=== PATIENT | male | born 1975 | race Caucasian/White ===

== ENCOUNTER 2017-07-28 14:04 | Inpatient (IN) | payer MEDICAID ==
[2017-07-28] MEDS ORDERED: SODIUM CHLORIDE 0.9% 1,000 ML IV STA ×2 (14:37→15:45)
[2017-07-28] MEDS ORDERED: ONDANSETRON 4 MG/2 ML VIAL IVP STA (14:37)
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
[2017-07-28 14:49] LABS: Basophils # (A) 0.1 k/uL (0-0.2); Basophils % (A) 0 %; Eosinophils # (A) 0.1 k/uL (0-0.7); Eosinophils % (A) 1 %; HGB 19.6 gm/dL (13.0-17.5); Lymphocytes # (A) 1.9 k/uL (1.0-4.8); Lymphocytes % (A) 12 %; MCH 29.9 pg (25.0-35.0); MCHC 33.5 g/dL (31.0-37.0); MCV 89.2 fL (80.0-100.0); Mean Platelet Volume 6.9; Monocytes # (A) 0.7 k/uL (0-1.0); Monocytes % (A) 5 %; Neutrophils # (A) 13.4 k/uL (1.3-7.7); Neutrophils % (A) 81 %; Platelet Count 384 k/uL (150-450); RBC 6.57 m/uL (4.30-5.90); RDW 14.2 % (11.5-15.5); WBC 16.5 k/uL (3.8-10.6)
[2017-07-28 14:53] LABS: HCT 58.6 % (39.0-53.0)
[2017-07-28 14:58] LABS: Prothrombin Time 11.4 sec (9.0-12.0)
[2017-07-28 14:59] LABS: INR 1.2 (<1.2)
[2017-07-28 15:08] LABS: Albumin 5.2 g/dL (3.5-5.0); Calcium 10.3 mg/dL (8.4-10.2); Potassium 4.9 mmol/L (3.5-5.1); Total Bilirubin 1.8 mg/dL (0.2-1.3); Total Protein 8.7 g/dL (6.3-8.2)
--- NOTE | 2017-07-28 15:17 | XR ---
EXAMINATION TYPE: XR abdomen acute w cxr DATE OF EXAM: 07/28/2017 COMPARISON: NONE HISTORY: Pain TECHNIQUE: Single view of the chest and 2 views of the abdomen are submitted. FINDINGS: Single view of the chest fails demonstrate evidence for acute pulmonary disease. There is no evidence for pneumoperitoneum. The bowel gas pattern is unremarkable as there is air throughout nondilated small and large bowel. No sizeable air fluid levels.No mass effects are seen. No unusual calcifications. IMPRESSION: 1. Unremarkable study.
[2017-07-28] MEDS ORDERED: cefTRIAXone IN SWFI 2,000 MG/20 ML SYRINGE IVP STA (15:28)
[2017-07-28] MEDS ORDERED: MORPHINE SULFATE 4 MG/ML SYRINGE IVP STA (15:35)
[2017-07-28] MEDS ORDERED: MORPHINE SULFATE 4 MG/ML SYRINGE IV PRN (15:46)
[2017-07-28] MEDS ORDERED: HEPARIN SODIUM,PORCINE 5,000 UNIT/ML 1 ML VIAL IV ONE (15:46)
[2017-07-28] MEDS ORDERED: NITROGLYCERIN SL TABS 0.4 MG TAB SUBLINGUAL PRN (15:46)
--- NOTE | 2017-07-28 16:56 | NM ---
EXAMINATION TYPE: NM pul vent and perfuse DATE OF EXAM: 07/28/2017 COMPARISON: NONE HISTORY: TECHNIQUE: Utilizing inhalation of 39 mCi Tc 99m DTPA aerosol and intravenous injection of 5.3 mCi o f Tc 99m MAA, ventilation and perfusion images are acquired post injection in multiple projections. FINDINGS: There is a large matching ventilation perfusion defect at the left lung base related to markedly elev ated left diaphragm. There is no mismatch. Perfusion images show no segmental type defect. IMPRESSION: There is a low probability of pulmonary embolism. Matching defect related to the elevated diaphragm.
[2017-07-28] MEDS: HEPARIN SODIUM,PORCINE/D5W PMX 25,000 UNIT in DEXTROSE/WATER 1 500ML.BAG IV SCH (17:07)
[2017-07-28] MEDS ORDERED: HYDROcodone/APAP 5-325MG 1 EACH TAB PO PRN (17:17)
[2017-07-28] MEDS: SODIUM CHLORIDE 0.9% 1,000 ML IV SCH (17:41)
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
--- NOTE | 2017-07-28 19:13 | US ---
EXAMINATION TYPE: US kidneys/renal and bladder DATE OF EXAM: 07/28/2017 COMPARISON: NONE CLINICAL HISTORY: LEONELA. Dizziness, vomiting, near syncope EXAM MEASUREMENTS: Right Kidney: 11.4 x 5.8 x 5.6 cm Left Kidney: 12.3 x 6.5 x 6.0 cm Difficult study due to patient body habitus Right Kidney: no hydro or renal masses seen Left Kidney: no hydro or renal masses seen Bladder: not fully distended Bilateral Jets seen: no IMPRESSION: No evidence of renal mass or obstruction. Bladder was empty during the exam.
[2017-07-28] MEDS ORDERED: ONDANSETRON 4 MG/2 ML VIAL IVP PRN (19:23)
[2017-07-28 20:16] LABS: Troponin I 0.042 ng/mL (0.000-0.034)
[2017-07-28] MEDS: PANTOPRAZOLE 40 MG/10 ML VIAL IVP SCH (20:32)
[2017-07-28] MEDS: FAMOTIDINE 20 MG TAB PO SCH (20:42)
[2017-07-29 00:26] LABS: Appearance,Urine Cloudy (Clear); Bilirubin,Urine Negative (Negative); Blood,Urine Small (Negative); Color,Urine Yellow; Glucose,Urine (UA) Negative (Negative); Granular Casts,Urine 10 /lpf (0); Hyaline Casts,Urine 35 /lpf (0-2); Ketones,Urine Trace (Negative); Leukocyte Esterase,Urine Negative (Negative); Mucus,Urine Rare /hpf; Nitrite,Urine Negative (Negative); Protein,Urine 1+ (Negative); RBC,Urine 3 /hpf (0-5); Specific Gravity,Urine 1.015 (1.001-1.035); Squamous Epithelial Cell,Urine 1 /hpf (0-4); WBC,Urine 8 /hpf (0-5)
[2017-07-29 01:13] LABS: Creatine Kinase MB 8.4 ng/mL (0.0-2.4); Troponin I 0.038 ng/mL (0.000-0.034)
[2017-07-29] MEDS ORDERED: HEPARIN SODIUM,PORCINE 5,000 UNIT/ML 1 ML VIAL IV PRN (01:20)
[2017-07-29] MEDS: SODIUM CHLORIDE 0.9% 1,000 ML IV SCH ×3 (03:10→23:34)
[2017-07-29 08:16] LABS: HCT 46.6 % (39.0-53.0); MCH 31.1 pg (25.0-35.0); MCHC 34.2 g/dL (31.0-37.0); MCV 90.9 fL (80.0-100.0); Mean Platelet Volume 6.8; Platelet Count 238 k/uL (150-450); RBC 5.13 m/uL (4.30-5.90); RDW 14.5 % (11.5-15.5); WBC 9.8 k/uL (3.8-10.6)
[2017-07-29 08:18] LABS: Calcium 7.3 mg/dL (8.4-10.2); Potassium 4.4 mmol/L (3.5-5.1)
[2017-07-29] MEDS: PANTOPRAZOLE 40 MG/10 ML VIAL IVP SCH (08:32)
[2017-07-29] MEDS: DEXTROAMPHETAMINE PO SCH (08:32)
[2017-07-29] MEDS: AMPHETAMINE PO SCH (08:32)
[2017-07-29] MEDS: ASPIRIN 81 MG PO SCH (08:32)
[2017-07-29] MEDS: FAMOTIDINE 20 MG TAB PO SCH (08:32)
[2017-07-29] MEDS ORDERED: ASPIRIN 325 MG TAB PO SCH (09:00)
[2017-07-29] MEDS ORDERED: LISINOPRIL 20 MG TAB PO SCH (09:00)
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
--- NOTE | 2017-07-29 12:19 | P.PN ---
Subjective 42-year-old gentleman came in with complains of nausea and dry heaving denied any sick and vomiting and had episodes of diarrhea yesterday denied any generalized body aches. Patient mainly came in because of lightheadedness vertiginous symptoms which improved now. Patient has been dizzy since last night. And nauseous and dry heaving. Denied any chest pain to me but it was noted by the ER patient patient complained of chest pain patient was complaining of abdominal pain which is mostly crampy in nature with some tenderness in the right upper quadrant. Upon evaluation patient is found to have a mildly elevated troponins without any significant EKG changes VQ scan is being obtain because of his complaints of pleuritic chest pain to ER physician. Patient doesn't have gallbladder. Patient is now around 4.2 previous creatinine was unavailable at this time. Patient is on lisinopril and naproxen and ibuprofen although doesn't take ibuprofen and naproxen together. Patient denied any fever chills. 07/30/2017 Patient abdominal pain is resolved and he is chest pain free now, no dyspnea, no dizziness, and no fever Patient still have loose bowel movements twice this morning, no nausea vomiting , no abdominal pain, patient has good appetite and is eating well No problem with urination he is still on IV fluids Objective - Vital Signs Vital signs: Vital Signs Temp 97.7 F 07/29/17 08:00 Pulse 75 07/29/17 08:00 Resp 18 07/29/17 08:00 BP 114/54 07/29/17 08:00 Pulse Ox 97 07/29/17 08:00 Intake & Output 07/28/17 07/29/17 07/29/17 18:59 06:59 18:59 Intake Total 200 966.667 240 Output Total 1100 1200 Balance 200 -133.333 -960 Weight 136.078 kg 141 kg Intake: IV 200 800 Sodium Chloride 0.9% 1, 200 800 000 ml @ 100 mls/hr IV . Q10H [facility] Rx#:[id number] Intake, IV Titration 166.667 Amount Heparin Sodium,Porcine/ 166.667 D5w Pmx 25,000 unit In Dextrose/Water 1 500ml. bag @ 7.349 UNITS/KG/HR 20 mls/hr IV .Q24H [facility] Rx #:[id number] Oral 240 Output: Urine 1100 1200 Other: Voiding Method Toilet - Exam GENERAL: The patient is alert and oriented x3, not in any acute distress. Well developed, well nourished. HEENT: Pupils are round and equally reacting to light. EOMI. No scleral icterus. No conjunctival pallor. Normocephalic, atraumatic. No pharyngeal erythema. No thyromegaly. CARDIOVASCULAR: S1 and S2 present. No murmurs, rubs, or gallops. PULMONARY: Chest is clear to auscultation, no wheezing or crackles. ABDOMEN: Soft, distended and obese without any significant rebound or rigidity significant tenderness, normoactive bowel sounds. No palpable organomegaly. MUSCULOSKELETAL: No joint swelling or deformity. EXTREMITIES: No cyanosis, clubbing, or pedal edema. NEUROLOGICAL: Gross neurological examination did not reveal any focal deficits. SKIN: No rashes. - Labs CBC & Chem 7: 07/29/17 07:40 07/29/17 07:40 Labs: Abnormal Lab Results - Last 24 Hours (Table) 07/28/17 07/28/17 07/28/17 Range/Units 14:16 14:16 14:16 WBC 16.5 H (3.8-10.6) k/uL RBC 6.57 H (4.30-5.90) m/uL Hgb 19.6 H (13.0-17.5) gm/dL Hct 58.6 H (39.0-53.0) % Neutrophils # 13.4 H (1.3-7.7) k/uL INR 1.2 H (<1.2) D-Dimer (<0.60) mg/L FEU Sodium (137-145) mmol/L Chloride 94 L (98-107) mmol/L Carbon Dioxide 17 L (22-30) mmol/L BUN 45 H (9-20) mg/dL Creatinine 4.40 H (0.66-1.25) mg/dL Calcium 10.3 H (8.4-10.2) mg/dL Total Bilirubin 1.8 H (0.2-1.3) mg/dL AST 67 H (17-59) U/L Alkaline Phosphatase 179 H (38-126) U/L Total Creatine Kinase (55-170) U/L CK-MB (CK-2) (0.0-2.4) ng/mL Troponin I (0.000-0.034) ng/mL C-Reactive Protein (<10.0) mg/L Total Protein 8.7 H (6.3-8.2) g/dL Albumin 5.2 H (3.5-5.0) g/dL Urine Protein (Negative) Urine Ketones (Negative) Urine Blood (Negative) Urine WBC (0-5) /hpf Hyaline Casts (0-2) /lpf Urine Mucus (None) /hpf 07/28/17 07/28/17 07/28/17 Range/Units 14:16 14:16 14:40 WBC (3.8-10.6) k/uL RBC (4.30-5.90) m/uL Hgb (13.0-17.5) gm/dL Hct (39.0-53.0) % Neutrophils # (1.3-7.7) k/uL INR (<1.2) D-Dimer 1.08 H (<0.60) mg/L FEU Sodium (137-145) mmol/L Chloride (98-107) mmol/L Carbon Dioxide (22-30) mmol/L BUN (9-20) mg/dL Creatinine (0.66-1.25) mg/dL Calcium (8.4-10.2) mg/dL Total Bilirubin (0.2-1.3) mg/dL AST (17-59) U/L Alkaline Phosphatase (38-126) U/L Total Creatine Kinase (55-170) U/L CK-MB (CK-2) (0.0-2.4) ng/mL Troponin I 0.074 H* (0.000-0.034) ng/mL C-Reactive Protein 46.7 H (<10.0) mg/L Total Protein (6.3-8.2) g/dL Albumin (3.5-5.0) g/dL Urine Protein (Negative) Urine Ketones (Negative) Urine Blood (Negative) Urine WBC (0-5) /hpf Hyaline Casts (0-2) /lpf Urine Mucus (None) /hpf 07/28/17 07/29/17 07/29/17 Range/Units 19:17 00:10 00:20 WBC (3.8-10.6) k/uL RBC (4.30-5.90) m/uL Hgb (13.0-17.5) gm/dL Hct (39.0-53.0) % Neutrophils # (1.3-7.7) k/uL INR (<1.2) D-Dimer (<0.60) mg/L FEU Sodium (137-145) mmol/L Chloride (98-107) mmol/L Carbon Dioxide (22-30) mmol/L BUN (9-20) mg/dL Creatinine (0.66-1.25) mg/dL Calcium (8.4-10.2) mg/dL Total Bilirubin (0.2-1.3) mg/dL AST (17-59) U/L Alkaline Phosphatase (38-126) U/L Total Creatine Kinase 779 H 928 H (55-170) U/L CK-MB (CK-2) 7.0 H* 8.4 H* (0.0-2.4) ng/mL Troponin I 0.042 H* 0.038 H* (0.000-0.034) ng/mL C-Reactive Protein (<10.0) mg/L Total Protein (6.3-8.2) g/dL Albumin (3.5-5.0) g/dL Urine Protein 1+ H (Negative) Urine Ketones Trace H (Negative) Urine Blood Small H (Negative) Urine WBC 8 H (0-5) /hpf Hyaline Casts 35 H (0-2) /lpf Urine Mucus Rare H (None) /hpf 07/29/18 Range/Units 07:40 WBC (3.8-10.6) k/uL RBC (4.30-5.90) m/uL Hgb (13.0-17.5) gm/dL Hct (39.0-53.0) % Neutrophils # (1.3-7.7) k/uL INR (<1.2) D-Dimer (<0.60) mg/L FEU Sodium 136 L (137-145) mmol/L Chloride (98-107) mmol/L Carbon Dioxide 19 L (22-30) mmol/L BUN 54 H (9-20) mg/dL Creatinine 2.99 H (0.66-1.25) mg/dL Calcium 7.3 L (8.4-10.2) mg/dL Total Bilirubin (0.2-1.3) mg/dL AST (17-59) U/L Alkaline Phosphatase (38-126) U/L Total Creatine Kinase (55-170) U/L CK-MB (CK-2) (0.0-2.4) ng/mL Troponin I (0.000-0.034) ng/mL C-Reactive Protein (<10.0) mg/L Total Protein (6.3-8.2) g/dL Albumin (3.5-5.0) g/dL Urine Protein (Negative) Urine Ketones (Negative) Urine Blood (Negative) Urine WBC (0-5) /hpf Hyaline Casts (0-2) /lpf Urine Mucus (None) /hpf Microbiology - Last 24 Hours (Table) 07/29/17 00:10 Urine Culture - Preliminary Urine,Voided Assessment and Plan Plan: -Possible gastroenteritis: Patient was started on Protonix, continue with IV fluids, abdominal series were negative, check for C. diff, stool culture, stool wbc, ova & parasite are pending -Elevated troponin secondary to acute renal failure, cardiology was consulted , echo is pending, VQ scan results shows low probability for PE, patient might benefit from stress test as per cardiology -Acute nonoliguric Renal failure: Secondary to hypertension and NSAIDs, creatinine is 4.4, 2.99, nephrology consult is appreciated and they recommended echo, continue with IV fluids and avoiding nephrotoxic medications -Leukocytosis: Resolved -Sleep apnea uses CPAP machine which will be continued -Hypertension hold off lisinopril because of hypotension and renal dysfunction - nicotine abuse: Counseling was provided DVT prophylaxis on heparin GI prophylaxis on the per contacts
--- NOTE | 2017-07-29 14:29 | ECHOF ---
Referral Reason:[facility] MEASUREMENTS -------- HEIGHT: 182.9 cm WEIGHT: 140.6 kg BP: IVSd: 1.3 cm (0.6 - 1.1) LVIDd: 4.6 cm (3.9 - 5.3) LVPWd: 1.4 cm (0.6 - 1.1) IVSs: 2.0 cm LVIDs: 2.4 cm LVPWs: 1.8 cm Ao Diam: 3.8 cm (2.0 - 3.7) AV Cusp: 1.9 cm (1.5 - 2.6) LA Diam: 2.8 cm (2.7 - 3.8) MV EXCURSION: 16.312 mm (> 18.000) MV EF SLOPE: 131 mm/s (70 - 150) EPSS: 0.9 cm MV E Martin: 0.76 m/s MV DecT: 237 ms MV A Martin: 0.70 m/s MV E/A Ratio: 1.08 RAP: 5.00 mmHg RVSP: 10.99 mmHg FINDINGS -------- Sinus rhythm. This was a technically difficult study with suboptimal views. The left ventricular size is normal. There is mild concentric left ventricular hypertrophy. Overa ll left ventricular systolic function is normal with, an EF between 55 - 60 %. The right ventricle is normal in size. The left atrium is normal in size. The right atrium is normal in size. Lumason used The aortic valve is trileaflet and appears structurally normal. Mild mitral regurgitation is present. Mild tricuspid regurgitation present. The right ventricular systolic pressure, as measured by Doppl er, is 10.99mmHg. Pulmonic valve appears structurally normal. The aortic root size is normal. The pericardium is normal. CONCLUSIONS -------- 1. Sinus rhythm. 2. This was a technically difficult study with suboptimal views. 3. The left ventricular size is normal. 4. There is mild concentric left ventricular hypertrophy. 5. Overall left ventricular systolic function is normal with, an EF between 55 - 60 %. 6. The right ventricle is normal in size. 7. The left atrium is normal in size. 8. The right atrium is normal in size. 9. Lumason used 10. The aortic valve is trileaflet and appears structurally normal. 11. Mild mitral regurgitation is present. 12. Mild tricuspid regurgitation present. 13. The right ventricular systolic pressure, as measured by Doppler, is 10.99mmHg. 14. Pulmonic valve appears structurally normal. 15. The aortic root size is normal. 16. The pericardium is normal. CERTIFIED TECHNICIAN SPECIALIST: Jany Wilder RDCS
[2017-07-29] MEDS: HEPARIN SODIUM,PORCINE/D5W PMX 25,000 UNIT in DEXTROSE/WATER 1 500ML.BAG IV SCH (16:35)
[2017-07-30 06:08] LABS: Basophils # (A) 0.1 k/uL (0-0.2); Basophils % (A) 1 %; Eosinophils # (A) 0.2 k/uL (0-0.7); Eosinophils % (A) 2 %; HCT 47.5 % (39.0-53.0); Lymphocytes # (A) 1.6 k/uL (1.0-4.8); Lymphocytes % (A) 26 %; MCH 30.5 pg (25.0-35.0); MCHC 33.7 g/dL (31.0-37.0); MCV 90.5 fL (80.0-100.0); Mean Platelet Volume 6.9; Monocytes # (A) 0.4 k/uL (0-1.0); Monocytes % (A) 7 %; Neutrophils # (A) 3.7 k/uL (1.3-7.7); Neutrophils % (A) 59 %; Platelet Count 235 k/uL (150-450); RBC 5.25 m/uL (4.30-5.90); RDW 14.3 % (11.5-15.5); WBC 6.2 k/uL (3.8-10.6)
[2017-07-30 06:17] LABS: Anion Gap 11 mmol/L; Blood Urea Nitrogen 23 mg/dL (9-20); Calcium 8.8 mg/dL (8.4-10.2); Carbon Dioxide 23 mmol/L (22-30); Chloride 108 mmol/L (98-107); Glucose 93 mg/dL (74-99); Magnesium 2.2 mg/dL (1.6-2.3); Potassium 5.4 mmol/L (3.5-5.1); Sodium 142 mmol/L (137-145)
--- NOTE | 2017-07-30 08:14 | P.PN ---
Subjective Patient is seen in follow-up for acute kidney injury. Creatinine was 4.4 on admission and is down to 0.7 today. Patient presented with generalized weakness and dizziness. He was noted be hypotensive and has been receiving IV hydration since admission. His orthostatics were negative this morning. He feels much better. No active complaints at this time. Vital signs are stable. General: The patient appeared well nourished and normally developed. HEENT: Head exam is unremarkable. Neck is without jugular venous distension. LUNGS: Lungs are clear to auscultation and percussion. Breath sounds decreased. HEART: Rate and Rhythm are regular. First and second heart sounds normal. No murmurs, rubs or gallops. ABDOMEN: Abdominal exam reveals normal bowel sounds. Non-tender and non- distended. No evidence of peritonitis. EXTREMITITES: No clubbing, cyanosis, or edema. Objective - Vital Signs Vital signs: Vital Signs Temp 97.2 F L 07/30/17 03:34 Pulse 80 07/30/17 03:34 Resp 16 07/30/17 03:34 BP 119/55 07/30/17 03:34 Pulse Ox 97 07/30/17 03:34 Intake & Output 07/29/17 07/30/17 07/30/17 18:59 06:59 18:59 Intake Total 480 1200 Output Total 1800 875 Balance -1320 325 Weight 141.1 kg Intake: IV 1200 Sodium Chloride 0.9% 1, 1200 000 ml @ 100 mls/hr IV . Q10H [facility] Rx#:[id number] Oral 480 Output: Urine 1800 875 Other: Voiding Method Toilet Urinal - Labs CBC & Chem 7: 07/30/17 05:33 07/30/17 05:33 Labs: Abnormal Lab Results - Last 24 Hours (Table) 07/29/17 07/30/17 Range/Units 07:40 05:33 Sodium 136 L (137-145) mmol/L Potassium 5.4 H (3.5-5.1) mmol/L Chloride 108 H (98-107) mmol/L Carbon Dioxide 19 L (22-30) mmol/L BUN 54 H 23 H (9-20) mg/dL Creatinine 2.99 H (0.66-1.25) mg/dL Calcium 7.3 L (8.4-10.2) mg/dL Microbiology - Last 24 Hours (Table) 07/28/17 17:00 Blood Culture - Preliminary Blood No Growth after 24 hours 07/29/17 00:10 Urine Culture - Preliminary Urine,Voided Assessment and Plan Plan: Assessment: 1. Nonoliguric acute kidney injury mostly prerenal secondary to hypotension and nonsteroidals. Creatinine was 4.4 on admission and is down to 0.7 today. No evidence of hydronephrosis on renal ultrasound. Urine eosinophils negative. 2. Hypotension secondary to intravascular volume depletion and benazepril. Likely orthostatic in nature. Improved. 3. Metabolic acidosis secondary to acute kidney injury. Improving. 4. Hypercalcemia secondary to volume contraction. Resolved with IV fluids. 5. Mild hyperkalemia secondary to heparin and possibly high potassium intake. Plan: Hep-Lock IV fluids. Continue to hold antihypertensives. Avoid nephrotoxic agents and hypotensive episodes. Encourage oral intake. Low potassium diet. Anticipate discharge soon. He will need to follow-up as an outpatient in the next 2 weeks.
[2017-07-30] MEDS: ASPIRIN 81 MG PO SCH (08:24)
[2017-07-30] MEDS: PANTOPRAZOLE 40 MG/10 ML VIAL IVP SCH (08:24)
[2017-07-30] MEDS: SODIUM CHLORIDE 0.9% 1,000 ML IV SCH (08:24)
[2017-07-30] MEDS: DEXTROAMPHETAMINE PO SCH (08:24)
[2017-07-30] MEDS: AMPHETAMINE PO SCH (08:24)
[2017-07-30 10:47] VITALS: RESP 18
[2017-07-30] MEDS ORDERED: ALPRAZolam 0.5 MG TAB PO STA (11:53)
[2017-07-30 12:19] LABS: Albumin 3.9 g/dL (3.5-5.0); Bilirubin, Delta 0.2 mg/dL (0.0-0.2); Bilirubin,Unconjugated 0.7 mg/dL (0.0-1.1); Potassium 5.9 mmol/L (3.5-5.1); Total Bilirubin 0.9 mg/dL (0.2-1.3); Total Protein 6.4 g/dL (6.3-8.2)
[2017-07-30 12:23] VITALS: BP 146/68; PULSE 69; TEMP 97.8
[2017-07-30] MEDS ORDERED: SODIUM POLYSTYRENE SULFONATE 15 GM/60 ML BOTTLE ONE (12:29)
[2017-07-30] MEDS: SODIUM POLYSTYRENE SULFONATE 15 GM/60 ML BOTTLE PO STA ×2 (12:31→12:33)
--- NOTE | 2017-07-30 13:21 | P.PN ---
Subjective Progress Note Date: 07/30/17 This is a pleasant 42-year-old gentleman with documented history of hypertension, nondiabetic, no hyperlipidemia, moderate obesity, nicotine dependence, who presented to the hospital after a one day duration of nausea and vomiting, he also states that for the past 2 days prior to admission he had been having diarrhea stools. Patient states that prior to his admission to the hospital he was feeling quite dizzy, having abdominal discomfort, and noted that his blood pressure was running on the low side. For these reasons he came to the emergency room for further evaluation. X-ray of the abdomen was performed which came back to be unremarkable. A lung perfusion scan was obtained which was low probability for PE. Ultrasound of the kidneys and bladder was performed which did not reveal evidence of renal mass or obstruction. Blood pressure this morning 114/50 with a heart rate in the 70s, temperature 97.7, he is 97% on room air. His blood pressure on admission was 96 /54. White blood cell count on admission 16.5, hemoglobin 19.6, white blood cell count this morning 9.8 with a hemoglobin of 16, platelet count 238. D- dimer 1.08. Sodium 136, potassium 4.4, BUN 54, creatinine 2.9. BUN on admission was 45 and creatinine was 4.4. CK on admission 779 and 928, MB 7.0 and 8.4, troponins 0.07, 0.04, 0.03. Cholesterol 151, LDL 83, HDL 46, triglycerides 110. At the time of my examination this morning, patient denies any nausea or vomiting, no further diarrhea stools. He does state that a couple of days prior to his admission here he was taking Motrin and Aleve at home. 07/30/2017 Patient seen and examined this morning, feeling well, denies any chest pain, no difficulty in breathing. No further vomiting or diarrhea. CBC is normal this morning, potassium 5.4, BUN 23, creatinine 0.7. Echocardiogram with Doppler study was performed which revealed a normal left ventricular systolic function. Objective - Vital Signs Vital signs: Vital Signs Temp 97.8 F 07/30/17 12:00 Pulse 69 07/30/17 12:00 Resp 18 07/30/17 12:00 BP 146/68 07/30/17 12:00 Pulse Ox 97 07/30/17 12:00 Intake & Output 07/29/17 07/30/17 07/30/17 18:59 06:59 18:59 Intake Total 480 1200 660 Output Total 1800 875 675 Balance -1320 325 -15 Weight 141.1 kg Intake: IV 1200 Sodium Chloride 0.9% 1, 1200 000 ml @ 100 mls/hr IV . Q10H [facility] Rx#:[id number] Oral 480 660 Output: Urine 1800 875 675 Other: Voiding Method Toilet Urinal - Exam PHYSICAL EXAMINATION: GENERAL: HEENT: Head is atraumatic, normocephalic. Pupils equal, round. Sclera anicteric. Conjunctiva are clear. Mucous membranes of the mouth are moist. Neck is supple. There is no elevated jugular venous pressure.] bruit is heard. HEART EXAMINATION: Heart S1, S2 normal. No murmur or gallop heard. CHEST EXAMINATION: Lungs are clear to auscultation and precussion. No chest wall tenderness is noted on palpation or with deep breathing. ABDOMEN: Soft, nontender. Bowel sounds are heard. No organomegaly noted. EXTREMITIES: 2+ peripheral pulses with no evidence of peripheral edema and no calf tenderness noted. NEUROLOGIC patient is awake, alert and oriented -3. . - Labs CBC & Chem 7: 07/30/17 05:33 07/30/17 11:52 Labs: Abnormal Lab Results - Last 24 Hours (Table) 07/30/17 07/30/17 Range/Units 05:33 11:52 Potassium 5.4 H 5.9 H (3.5-5.1) mmol/L Chloride 108 H (98-107) mmol/L BUN 23 H (9-20) mg/dL Microbiology - Last 24 Hours (Table) 07/28/17 17:00 Blood Culture - Preliminary Blood No Growth after 24 hours 07/29/17 00:10 Urine Culture - Preliminary Urine,Voided Assessment and Plan Plan: Assessment and plan #1 acute kidney injury, likely secondary to dehydration from vomiting and diarrhea, hypotension and nonsteroidals #2 hypertension history #3 hypotension, likely secondary to volume depletion and benazepril #4 nicotine dependence # 5 troponin abnormality, likely secondary to abnormal renal function Plan From cardiology's perspective, patient may be able to be discharged home today. We'll make him a follow-up appointment to see Dr. Shrestha in the office post discharge. An outpatient stress test will be ordered. DNP note has been reviewed, I agree with a documented findings and plan of care. Patient was seen and examined.
--- NOTE | 2017-07-30 17:42 | P.PN ---
Subjective 42-year-old gentleman came in with complains of nausea and dry heaving denied any sick and vomiting and had episodes of diarrhea yesterday denied any generalized body aches. Patient mainly came in because of lightheadedness vertiginous symptoms which improved now. Patient has been dizzy since last night. And nauseous and dry heaving. Denied any chest pain to me but it was noted by the ER patient patient complained of chest pain patient was complaining of abdominal pain which is mostly crampy in nature with some tenderness in the right upper quadrant. Upon evaluation patient is found to have a mildly elevated troponins without any significant EKG changes VQ scan is being obtain because of his complaints of pleuritic chest pain to ER physician. Patient doesn't have gallbladder. Patient is now around 4.2 previous creatinine was unavailable at this time. Patient is on lisinopril and naproxen and ibuprofen although doesn't take ibuprofen and naproxen together. Patient denied any fever chills. 07/30/2017 Patient abdominal pain is resolved and he is chest pain free now, no dyspnea, no dizziness, and no fever Patient still have loose bowel movements twice this morning, no nausea vomiting , no abdominal pain, patient has good appetite and is eating well No problem with urination he is still on IV fluids Objective - Vital Signs Vital signs: Vital Signs Temp 97.8 F 07/30/17 12:00 Pulse 69 07/30/17 12:00 Resp 18 07/30/17 12:00 BP 146/68 07/30/17 12:00 Pulse Ox 97 07/30/17 12:00 Intake & Output 07/29/17 07/30/17 07/30/17 18:59 06:59 18:59 Intake Total 480 1200 660 Output Total 1800 875 675 Balance -1320 325 -15 Weight 141.1 kg Intake: IV 1200 Sodium Chloride 0.9% 1, 1200 000 ml @ 100 mls/hr IV . Q10H [facility] Rx#:[id number] Oral 480 660 Output: Urine 1800 875 675 Other: Voiding Method Toilet Urinal - Exam GENERAL: The patient is alert and oriented x3, not in any acute distress. Well developed, well nourished. HEENT: Pupils are round and equally reacting to light. EOMI. No scleral icterus. No conjunctival pallor. Normocephalic, atraumatic. No pharyngeal erythema. No thyromegaly. CARDIOVASCULAR: S1 and S2 present. No murmurs, rubs, or gallops. PULMONARY: Chest is clear to auscultation, no wheezing or crackles. ABDOMEN: Soft, distended and obese without any significant rebound or rigidity significant tenderness, normoactive bowel sounds. No palpable organomegaly. MUSCULOSKELETAL: No joint swelling or deformity. EXTREMITIES: No cyanosis, clubbing, or pedal edema. NEUROLOGICAL: Gross neurological examination did not reveal any focal deficits. SKIN: No rashes. - Labs CBC & Chem 7: 07/30/17 05:33 07/30/17 11:52 Labs: Abnormal Lab Results - Last 24 Hours (Table) 07/30/17 07/30/17 Range/Units 05:33 11:52 Potassium 5.4 H 5.9 H (3.5-5.1) mmol/L Chloride 108 H (98-107) mmol/L BUN 23 H (9-20) mg/dL Microbiology - Last 24 Hours (Table) 07/29/17 00:10 Urine Culture - Final Urine,Voided 07/28/17 17:00 Blood Culture - Preliminary Blood No Growth after 24 hours Assessment and Plan Plan: -Possible gastroenteritis: Patient was started on Protonix, continue with IV fluids, abdominal series were negative, check for C. diff, stool culture, stool wbc, ova & parasite are pending -Elevated troponin secondary to acute renal failure, cardiology was consulted , VQ scan results shows low probability for PE, patient might benefit from stress test as per cardiology, cardiology appointment is made for the patient. Patient was taken by cardiology team for discharge -Acute nonoliguric Renal failure: Secondary to hypertension and NSAIDs, creatinine is 4.4, 2.99, 0.7 nephrology consult is appreciated and they recommended echo, continue with IV fluids and avoiding nephrotoxic medications -Leukocytosis: Resolved -Sleep apnea uses CPAP machine which will be continued -Hypertension hold off lisinopril because of hypotension and renal dysfunction - nicotine abuse: Counseling was provided -Hyperkalemia potassium this morning was 5.9, Kayexalate is given for the patient however as per staff he took only 15 g out of 30 g roughly. Recheck potassium level before discharge. we will come and check the potassium level before we can decision about discharge patient. Patient was informed about this problem DVT prophylaxis on heparin GI prophylaxis on the per contacts
--- NOTE | 2017-07-30 17:45 | P.PN ---
Subjective Addendum Patient signed leaving AMA before i have the chance to see the patient again, as per staff patient didn't want to wait for the potassium check after he got only 15 g roughly of Kayexalate although 30 g of Kayexalate has been prescribed for the patient Objective - Vital Signs Vital signs: Vital Signs Temp 97.8 F 07/30/17 12:00 Pulse 69 07/30/17 12:00 Resp 18 07/30/17 12:00 BP 146/68 07/30/17 12:00 Pulse Ox 97 07/30/17 12:00 Intake & Output 07/29/17 07/30/17 07/30/17 18:59 06:59 18:59 Intake Total 480 1200 660 Output Total 1800 875 675 Balance -1320 325 -15 Weight 141.1 kg Intake: IV 1200 Sodium Chloride 0.9% 1, 1200 000 ml @ 100 mls/hr IV . Q10H [facility] Rx#:[id number] Oral 480 660 Output: Urine 1800 875 675 Other: Voiding Method Toilet Urinal - Labs CBC & Chem 7: 07/30/17 05:33 07/30/17 11:52 Labs: Abnormal Lab Results - Last 24 Hours (Table) 07/30/17 07/30/17 Range/Units 05:33 11:52 Potassium 5.4 H 5.9 H (3.5-5.1) mmol/L Chloride 108 H (98-107) mmol/L BUN 23 H (9-20) mg/dL Microbiology - Last 24 Hours (Table) 07/29/17 00:10 Urine Culture - Final Urine,Voided 07/28/17 17:00 Blood Culture - Preliminary Blood No Growth after 24 hours
--- NOTE | 2017-08-03 01:23 | P.DS ---
Providers Date of admission: 07/28/17 15:46 Attending physician: Meagan Carranza Consults: 07/28/17 15:46 Consult Physician Stat Consulting Provider: Sultana Sr Consult Reason/Comments: Acute renal failure, hypertension, myocardial infarction Do you want consulting provider notified?: Yes Consult Physician Urgent Consulting Provider: Homer Soto Consult Reason/Comments: Myocardial infarction, hypertension and elevated d- dimer Do you want consulting provider notified?: Yes Primary care physician: Gustavo Rogers [facility] Course: PLEASE NOTE THIS IS NOT A DISCHARGE SUMMARY BECAUSE PT WAS NOT DISCHARGED BUT HE LEFT AMA this a pleasant 42 yo M who presents with acute renal failure and dehydration , he was treated with iv fluid and his cr improved however his last day potassium level was high in am labs at 5.4,i have the chance to meed with the pt in the [facility] who was already dressed up and ready to go, I told him about the problem of K and need to check it again , risks of arrhythmia and are explained for him and he agree to recheck his K which came back edgar at 5.9 so kayexalate was ordered to the pt he drank half of it as per staff, after that he did not want to wait till we check his K and he left before i have another chance to see him, staff explained risks to the pt including but not limited to risk of Patient Condition at Discharge: Fair Plan - Discharge Summary Discharge Rx Participant: Yes New Discharge Prescriptions: No Action Naproxen Sodium [Aleve] 220 mg PO BID PRN PRN Reason: Pain Ibuprofen [Motrin] 800 mg PO ONCE PRN PRN Reason: Pain Dextroamphetamine/Amphetamine [Adderall Xr] 40 mg PO QAM Benazepril HCl 40 mg PO DAILY Discharge Medication List Benazepril HCl 40 mg PO DAILY 07/28/17 [History] Dextroamphetamine/Amphetamine [Adderall Xr] 40 mg PO QAM 07/28/17 [History] Ibuprofen [Motrin] 800 mg PO ONCE PRN 07/28/17 [History] Naproxen Sodium [Aleve] 220 mg PO BID PRN 07/28/17 [History] Follow up Appointment(s)/Referral(s): Nonstaff,Physician [REFERRING] - 1-2 days Aubree Shrestha MD [STAFF PHYSICIAN] - 08/13/17 2:30 pm (for your heart disease ) Discharge Disposition: Left Against Medical Advice
== END 2017-07-30 14:57 | disposition left against medical advice (07) | DRG 683 ==
LOC: EC 14:04 → 6SEL 15:46
PROVIDERS: ADMIT Hospitalist; ATTEND Hospitalist
DX: N17.9 Acute kidney failure, unspecified (principal); E87.2 Acidosis; Z68.41 Body mass index [BMI] 40.0-44.9, adult; E83.52 Hypercalcemia; E86.0 Dehydration; E87.5 Hyperkalemia; F17.200 Nicotine dependence, unspecified, uncomplicated; G47.30 Sleep apnea, unspecified; K29.70 Gastritis, unspecified, without bleeding; K52.9 Noninfective gastroenteritis and colitis, unspecified; R79.1 Abnormal coagulation profile; I95.9 Hypotension, unspecified; R77.9 Abnormality of plasma protein, unspecified; I10 Essential (primary) hypertension; F90.9 Attention-deficit hyperactivity disorder, unspecified type; D72.829 Elevated white blood cell count, unspecified; T46.4X5A Adverse effect of angiotensin-converting-enzyme inhibitors, initial encounter; E66.9 Obesity, unspecified; Z79.899 Other long term (current) drug therapy; Z88.2 Allergy status to sulfonamides; Z90.49 Acquired absence of other specified parts of digestive tract; Y92.009 Unspecified place in unspecified non-institutional (private) residence as the place of occurrence of the external cause
CPT/HCPCS: 36415; 74022; 76770; 78582; 80048; 80053; 80061; 80076; 81001; 82550; 82553; 83605; 83735; 84132; 84484; 85025; 85027; 85379; 85610; 85730; 86140; 87040; 87086; 87205; 93005; 93306; 96361; 96365; 96366; 96375; 96376; 99291